=== PATIENT | female | born 1960 | race American Indian/Alaskan Native ===

== ENCOUNTER 2017-02-19 19:14 | Emergency (ER) | payer MEDICARE, OTHER ==
[~2017-02-19] VITALS: Ht 167.6 cm; Wt 81.7 kg
[~2017-02-19 19:14] MED LIST: ACYC400 PO; ALBU90I INH; ALBU90OI INH; ALBUTEROL; AMOX1XR PO; ARIP10 PO; ASPI325EC PO; BACL10 PO; BUSP15; CEPH500 PO; CIPR500; CLON.1 PO; CLON.5; CLON.5 PO; CLON1; CLON2 PO; CLOT10 SS; CRUTCH3 USE; CYCL10; DICYCLOMINE; DULO30 PO; ESCI20 PO; ESCI5 PO; ESTMET; FLEXERIL; FURO100EL PO; FURO40 PO; GABA100; GABA600 PO; HYDACE5325 PO; HYDHCL10 PO; HYDMOR4 PO; HYDPAM50 PO; IBUP800 PO; Ipratr-Albuterol3 ML INH; LEVSOD150 PO; LEVSOD200; LEVSOD25 PO; LIDO5TP; LIDO5TP TOP; LOPE2C PO; METCAR750 PO; METH10; METO10 PO; Monodox100 MG PO; NIAC500ER; NYST100TC TOP; OXYACE10; OXYACE5T PO; OXYACE7.5T; POTA8 PO; POTCHL20ER PO; PRAV20; PREG25 PO; PROG100; PROM12.5S PR; PROM25 PO; PROM50S; PROMETHAZINE; PROMETHAZINE HCL; Percocet 5-3251 EACH PO; Prilosec Otc20 MG PO; QUET25 PO; QUET300; QUET300 PO; RXHYDMOR2 PO; RXOXYACE PO; SIMV40 PO; SIMV5 PO; SPACE CHAMBER1 EACH MC; SULTRIDS PO; SUMA25 PO; TIZANIDINE HCL4 MG PO; TOPI50 PO; TRAM50; TRAM50 PO; TRAZ100; TRAZ100 PO; URICALM; VENL75ER; [UNRECOGNIZED DRUG - OTHER]; [UNRECOGNIZED DRUG - OTHER]
[2017-02-19 19:32] LABS: BASOPHILS ABSOLUTE AUTO 0.04 K/mm3 (0.00-0.23); BASOPHILS PERCENT AUTO 0 % (0-2); EOSINOPHILS ABSOLUTE AUTO 0.24 K/mm3 (0.00-0.68); EOSINOPHILS PERCENT AUTO 2 % (0-6); Hematocrit 35.2 % (33.0-51.0); Hemoglobin 11.4 g/dL (11.5-16.0); IMMATURE GRAN ABSOLUTE AUTO 0.06 K/mm3 (0.00-0.10); IMMATURE GRAN PERCENT AUTO 0 % (0-1); LYMPHOCYTES ABSOLUTE AUTO 4.41 K/mm3 (0.84-5.20); LYMPHOCYTES PERCENT AUTO 30 % (21-46); MONOCYTES ABSOLUTE AUTO 1.03 K/mm3 (0.16-1.47); MONOCYTES PERCENT AUTO 7 % (4-13); Mean Corpuscular HGB 31.3 pg (26.0-34.0); Mean Corpuscular HGB Conc 32.4 g/dL (31.5-36.5); Mean Corpuscular Volume 97 fL (80-100); Mean Platelet Volume 9.8 fL (9.1-12.4); NEUTROPHILS PERCENT AUTO 61 % (41-73); Platelet Count 246 K/mm3 (150-400); RDW Coefficient Variation 14.6 % (11.7-14.2); RDW Standard Deviation 52.1 fL (35.1-46.3); Red Blood Cell Count 3.64 M/mm3 (3.80-5.20); White Blood Cell Count 14.78 K/mm3 (4.00-11.30)
[2017-02-19 19:47] LABS: International Normalized Ratio 1.03; Prothrombin Time Results 10.7 Sec (9.7-11.5)
[2017-02-19 19:50] LABS: Alanine Aminotransfer (ALT/SGP 28 U/L (12-78); Albumin, Blood 3.3 g/dL (3.4-5.0); Albumin/Globulin Ratio 0.9 (0.8-1.8); Alk Phos 92 U/L (50-136); Anion Gap 8 mmol/L (6-16); Aspartate Aminotrans (AST/SGOT 39 U/L (12-37); Bilirubin, Total 0.4 mg/dL (0.1-1.0); Blood Urea Nitrogen 13 mg/dL (8-24); Bun/Creatinine Ratio 14.6 (12.0-20.0); CO2, Blood 27 mmol/L (21-32); Calcium, Blood 8.5 mg/dL (8.5-10.1); Chloride, Blood 108 mmol/L (98-108); Creatinine, Blood 0.89 mg/dL (0.40-1.00); Globulin, Blood 3.5 g/dL (2.2-4.0); Glomerular Filtration Rate >60 (60-); Glucose, Blood 118 mg/dL (70-99); Potassium, Blood 3.2 mmol/L (3.5-5.5); Sodium, Blood 143 mmol/L (136-145); Total Protein, Blood 6.8 g/dL (6.4-8.2)
[2017-02-19 20:54] LABS: Ethanol (Alcohol), Blood, Med <3 mg/dL
== END 2017-02-19 22:08 | disposition short-term general hospital (02) ==
LOC: ER 19:14
PROVIDERS: Emergency Medicine
DX: S12.000A Unspecified displaced fracture of first cervical vertebra, initial encounter for closed fracture (principal); S12.100A Unspecified displaced fracture of second cervical vertebra, initial encounter for closed fracture; S02.82XA Fracture of other specified skull and facial bones, left side, initial encounter for closed fracture; S22.31XA Fracture of one rib, right side, initial encounter for closed fracture; S35.09XA Other injury of abdominal aorta, initial encounter; S05.11XA Contusion of eyeball and orbital tissues, right eye, initial encounter; S00.83XA Contusion of other part of head, initial encounter; V89.2XXA Person injured in unspecified motor-vehicle accident, traffic, initial encounter; Z88.5 Allergy status to narcotic agent; Z88.8 Allergy status to other drugs, medicaments and biological substances; Z79.899 Other long term (current) drug therapy
CPT/HCPCS: 70450; 70486; 71260; 72125; 74177; 80053; 85025; 85610; 85730; 96374; 96375; 96376; 99285; G0480; J2060; J3010; Q9967

== ENCOUNTER 2017-06-01 11:43 | Day surgery (SDC) | payer MEDICARE, OTHER ==
[~2017-06-01] VITALS: Ht 182.9 cm; Wt 9.3 kg
== END 2017-06-01 13:20 | disposition home or self-care (01) ==
LOC: ORSCSDS 11:43
PROVIDERS: Internal Medicine Gastroenterology
PROC: 0DBL8ZX Excision of Transverse Colon, Via Natural or Artificial Opening Endoscopic, Diagnostic (ICD-10-PCS; principal; 2017-06-01 13:00)
DX: Z12.11 Encounter for screening for malignant neoplasm of colon (principal); D12.3 Benign neoplasm of transverse colon; K57.30 Diverticulosis of large intestine without perforation or abscess without bleeding; K64.8 Other hemorrhoids; Z86.010 Personal history of colon polyps; E78.5 Hyperlipidemia, unspecified; Z79.899 Other long term (current) drug therapy
CPT/HCPCS: 88305; J7120

== ENCOUNTER → 2017-07-09 | Outpatient (CLI) | payer MEDICARE, OTHER | LOC: LAB EV 09:50 → LAB SHORT 09:50 | DX: N10 Acute pyelonephritis (principal) | CPT/HCPCS: 87077; 87086; 87186 ==

== ENCOUNTER 2018-06-09 09:01 | Day surgery (SDC) | payer MEDICARE, OTHER ==
[~2018-06-09] VITALS: Ht 182.9 cm; Wt 102.2 kg
[~2018-06-09 09:01] MED LIST changes: +CLONAZEPAM PO; +DULO60 PO; +Imitrex100 MG PO; +LEVSOD125 PO; +Omeprazole20 M1 PO; +TRAZ150T57 PO
== END 2018-06-09 11:08 | disposition home or self-care (01) ==
LOC: ORSCSDS 09:01
PROVIDERS: Internal Medicine Gastroenterology
PROC: 0DBK8ZX Excision of Ascending Colon, Via Natural or Artificial Opening Endoscopic, Diagnostic (ICD-10-PCS; principal; 2018-06-09 10:15)
DX: Z12.11 Encounter for screening for malignant neoplasm of colon (principal); D12.2 Benign neoplasm of ascending colon; Z86.010 Personal history of colon polyps; K57.30 Diverticulosis of large intestine without perforation or abscess without bleeding; J44.9 Chronic obstructive pulmonary disease, unspecified; K64.8 Other hemorrhoids; E78.5 Hyperlipidemia, unspecified; E03.9 Hypothyroidism, unspecified; Z79.899 Other long term (current) drug therapy
CPT/HCPCS: 88305; J2704; J7120

== ENCOUNTER → 2019-12-02 | Outpatient (CLI) | payer OTHER ==
[~2019-12-02] MED LIST changes: +ACYCLOVIR400 MG PO; +AIMOVIG AU70 MG/1 ML SQ; +ARIPIPRAZOLE10 M1 PO; +CEFD300 PO; +Trazodone HCl300 MG PO
== END | disposition home or self-care (01) ==
LOC: LAB SHORT 10:55 → LAB EV 10:55
DX: K11.21 Acute sialoadenitis (principal)
CPT/HCPCS: 87070; 87205

== ENCOUNTER → 2019-12-24 | Outpatient (CLI) | payer OTHER ==
[~2019-12-24] MED LIST changes: +AIMOVIG AU70 MG/1 ML SC; -AIMOVIG AU70 MG/1 ML SQ; +CLONAZEPAM1 MG PO; -Trazodone HCl300 MG PO
== END | disposition home or self-care (01) ==
LOC: LAB EV 14:26 → LAB SHORT 14:26
DX: N39.0 Urinary tract infection, site not specified (principal)
CPT/HCPCS: 87077; 87086; 87186

== ENCOUNTER 2020-01-02 16:40 | Inpatient (IN) | payer OTHER ==
[~2020-01-02] VITALS: Ht 182.9 cm; Wt 102.6 kg
[~2020-01-02 16:40] MED LIST changes: -CLONAZEPAM1 MG PO
[2020-01-02 17:14] LABS: Hematocrit 39.4 % (33.0-51.0); Hemoglobin 12.5 g/dL (11.5-16.0); Mean Corpuscular HGB 31.9 pg (26.0-34.0); Mean Corpuscular HGB Conc 31.7 g/dL (31.5-36.5); Mean Corpuscular Volume 101 fL (80-100); Mean Platelet Volume 10.1 fL (9.1-12.4); Platelet Count 271 K/mm3 (150-400); RDW Coefficient Variation 14.1 % (11.7-14.2); RDW Standard Deviation 51.5 fL (35.1-46.3); Red Blood Cell Count 3.92 M/mm3 (3.80-5.20); White Blood Cell Count 10.51 K/mm3 (4.00-11.30)
[2020-01-02 17:29] LABS: International Normalized Ratio 0.93
[2020-01-02 17:33] LABS: Alanine Aminotransfer (ALT/SGP 20 U/L (12-78); Albumin, Blood 3.6 g/dL (3.4-5.0); Alk Phos 90 U/L (50-136); Anion Gap 8 mmol/L (6-16); Aspartate Aminotrans (AST/SGOT 19 U/L (12-37); Bilirubin, Total 0.4 mg/dL (0.1-1.0); Blood Urea Nitrogen 11 mg/dL (8-24); Bun/Creatinine Ratio 12.8 (12.0-20.0); CO2, Blood 25 mmol/L (21-32); Calcium, Blood 9.2 mg/dL (8.5-10.1); Chloride, Blood 112 mmol/L (98-108); Creatinine, Blood 0.86 mg/dL (0.40-1.00); Globulin, Blood 3.7 g/dL (2.2-4.0); Glomerular Filtration Rate >60 (60-); Glucose, Blood 148 mg/dL (70-99); Potassium, Blood 3.4 mmol/L (3.5-5.5); Sodium, Blood 145 mmol/L (136-145); Total Protein, Blood 7.3 g/dL (6.4-8.2)
[2020-01-02 17:35] LABS: BASOPHILS PERCENT MAN 1 % (0-2); EOSINOPHILS PERCENT MAN 1 % (0-6); LYMPHOCYTES ABSOLUTE MAN 5.14 K/mm3 (0.84-5.20); LYMPHOCYTES PERCENT MAN 49 % (21-46); MONOCYTES ABSOLUTE MAN 0.84 K/mm3 (0.16-1.47); MONOCYTES PERCENT MAN 8 % (4-13); SEG NEUTROPHILS PERCENT MAN 41 % (41-73); TOTAL CELLS COUNTED 100
[2020-01-02 19:04] LABS: Source, Urine Catheter
[2020-01-02 19:07] LABS: Appearance, Urine Clear (Clear); Bilirubin, Urine Neg (Neg); Blood, Urine 2+ (Neg); Color, Urine Yellow (P-Yellow); Glucose Qualitative, Urine Neg (Neg); Ketones, Urine Neg (Neg); Leukocyte Esterase, Urine Neg (Neg); Nitrite, Urine Neg (Neg); Protein, Urine Neg (Neg); Specific Gravity, Urine 1.015 (1.003-1.022); Urobilinogen, Urine NORM (Normal)
[2020-01-02 19:18] LABS: Bacteria Few /hpf; Mucus Light (0-Heavy); Squamous Epithelial Cells Not Seen /hpf (Few); White Blood Cells, Urine 0-2 /hpf (0-5)
[2020-01-02] MEDS ORDERED: CLONAZEPAM1 MG PO (20:02)
--- NOTE | 2020-01-02 22:00 | NUR ---
PT ADMITTED FROM ER AT APPROX 2120 FOR LEFT FEMUR FX. PT REPORTS SLIPPING OUTSIDE IN DRIVEWAY. PT REPORTS SHE LIVES AT HOME ALONE. INDEPENDENT AT BASELINE. DAUGHTER AND S/O ACTIVE IN CARE. A&O X4. VSS. FORTUNE AWARE OF ORTHO CONSULT. 50MCG OF FENTANYL FOR PAIN PER EMAR. NPO AT MIDNIGHT FOR SURGERY TOMORROW. WILL INFUSE NS AFTER MIDNIGHT PER ORDERS.
--- NOTE | 2020-01-03 14:42 | NUR ---
PT TO DAY SURGERY AT THIS TIME.
--- NOTE | 2020-01-03 14:58 | NUR ---
History, Chart, Medications and Allergies reviewed before start of procedure. Patient confirms NPO status and agrees with scheduled surgery. Pre-Op teaching done. Pt verbalizes understanding.
--- NOTE | 2020-01-03 17:47 | NUR ---
SHIFT SUMMARY PT WAS RECEIVING 50 MCG IV FENTANYL FOR PAIN MANAGEMENT Q2H PRIOR TO SURGERY. ATTEMPTED ICE AND REPOSITIONING TOLERATED. CERVANTES INTACT AND DRAINING YELLOW URINE. IVF PER ORDERS. DAUGHTER WAS AT BEDSIDE THIS AFTERNOON FOR SUPPORT. DAUGHTER CALLED AND WAS UPDATED ON PT STILL BEING IN THE OR AT THIS TIME.
--- NOTE | 2020-01-03 18:32 | NUR ---
POST OP S/P FEMUR RODDING. PT DROWSY BUT AWAKENS EASILY AND FOLLOWS COMMANDS. POST OP VSS. ENCOURAGING DEEP BREATHING. LEFT LEG DRESSING APPEARS CDI WITH KNEE IMMOBILIZER IN PLACE. PT ABLE TO WIGGLE TOES AND CAP REFILL <3 SECONDS. PT DENIES PAIN TO LEFT LEG, BUT REPORTS LOWER BACK PAIN. REPOSITIONING FOR COMFORT PRN. OFFERED ICE WATER. IVF INFUSNIG PER ORDERS. CERVANTES CATH PATENT AND DRAINING CLEAR YELLOW. CALL LIGHT WITHIN REACH.
[2020-01-04 04:48] LABS: BASOPHILS ABSOLUTE AUTO 0.02 K/mm3 (0.00-0.23); BASOPHILS PERCENT AUTO 0 % (0-2); EOSINOPHILS PERCENT AUTO 0 % (0-6); Hematocrit 34.9 % (33.0-51.0); Hemoglobin 10.9 g/dL (11.5-16.0); IMMATURE GRAN ABSOLUTE AUTO 0.04 K/mm3 (0.00-0.10); IMMATURE GRAN PERCENT AUTO 0 % (0-1); LYMPHOCYTES ABSOLUTE AUTO 0.98 K/mm3 (0.84-5.20); LYMPHOCYTES PERCENT AUTO 9 % (21-46); MONOCYTES ABSOLUTE AUTO 0.99 K/mm3 (0.16-1.47); MONOCYTES PERCENT AUTO 9 % (4-13); Mean Corpuscular HGB 31.9 pg (26.0-34.0); Mean Corpuscular HGB Conc 31.2 g/dL (31.5-36.5); Mean Corpuscular Volume 102 fL (80-100); Mean Platelet Volume 10.5 fL (9.1-12.4); NEUTROPHILS ABSOLUTE AUTO 9.34 K/mm3 (1.96-9.15); NEUTROPHILS PERCENT AUTO 82 % (41-73); Platelet Count 231 K/mm3 (150-400); RDW Coefficient Variation 14.1 % (11.7-14.2); RDW Standard Deviation 53.5 fL (35.1-46.3); Red Blood Cell Count 3.42 M/mm3 (3.80-5.20); White Blood Cell Count 11.37 K/mm3 (4.00-11.30)
[2020-01-04 05:11] LABS: Anion Gap 6 mmol/L (6-16); Blood Urea Nitrogen 7 mg/dL (8-24); Bun/Creatinine Ratio 9.5 (12.0-20.0); CO2, Blood 26 mmol/L (21-32); Calcium, Blood 8.7 mg/dL (8.5-10.1); Chloride, Blood 109 mmol/L (98-108); Creatinine, Blood 0.74 mg/dL (0.40-1.00); Glomerular Filtration Rate >60 (60-); Glucose, Blood 142 mg/dL (70-99); Potassium, Blood 4.3 mmol/L (3.5-5.5); Sodium, Blood 141 mmol/L (136-145)
--- NOTE | 2020-01-04 06:52 | NUR ---
SHIFT SUMMARY POD 1 S/P LEFT FEMUR RODDING. VICENTA WRAP AND IMMOBILIZER TO LLE IN PLACE, DRESSING APPEARS CDI. SCD AND TEDS IN PLACE, ICE APPLIED JENISE. PAIN MANAGED PER EMAR AND REPOSITIONING. DENIES N/V. JENISE PO INTAKE. IVF/ABX INFUSING PER ORDERS. APPEARS TO HAVE SLEPT WELL T/O SHIFT. PLAN TO WORK WITH THERAPY TODAY. WILL CONT TO MONITOR AND GIVE REPORT TO ONCOMING RN.
--- NOTE | 2020-01-04 15:44 | NUR ---
FAXED ORDERS, FACESHEET, CHART NOTES TO [facility]
--- NOTE | 2020-01-04 17:45 | NUR ---
DR FORTUNE IN AND [facility] IN \ DR FORTUNE IN TO CHANGE DRESSING TO LLE [facility] IN TO FIT PT FOR ROM BRACE.
--- NOTE | 2020-01-04 17:56 | NUR ---
SUMMARY NO ACUTE CHANGES THIS SHIFT. PT WORKED W/THERAPY. CERVANTES CATH DC'D THIS AM AND PT HAS BEEN VOIDING W/O DIFFICULTY. IV INFILTRATED, MULTIPLE TRIES WERE UNSUCCESSFUL TO ESTABLISH NEW SITE. NOTIFIED DR DOMINGUEZ AND OBTAINED ORDERS TO INCREASE TRAMADOL DOSAGE FOR PAIN AND CHANGE ZOFRAN TO PO. PT'S PAIN WAS NOT WELL CONTROLLED W/ORDERS FOR TRAMADOL, NAPROXEN AND TYLENOL. SPOKE TO DR FORTUNE AND OBTAINED ORDERS FOR OXYCODONE, WHICH PT REPORTS HAS TAKEN IN PAST. DR FORTUNE IN THIS AFTERNOON TO CHANGE DRESSINGS AND [facility] IN TO PLACE ROM BRACE AT 0-90. PT HAS BEEN AMBULATING TO RESTROOM W/NWB TO LLE STATUS USING GAIT BELT AND FWW. SAT UP IN CHAIR TWICE DURING SHIFT. TOLERATING REGULAR DIET. ICE INTERMITTENTLY TO L KNEE. CALL LIGHT IN REACH.
--- NOTE | 2020-01-05 07:22 | NUR ---
SUMMARY TOLERATES BRP NWB LLE. HAD DULCOLAX PILL TONIGHT, BUT NO BM YET.
--- NOTE | 2020-01-05 16:11 | NUR ---
DISCHARGE: REPORT GIVEN TO MARTINA DELGADO AT [facility] AT THIS TIME. PT GIVEN EXTRA AQUACEL DRESSINGS UPON DISCHARGE. PT LEFT UNIT VIA WHEELCHIAR AT ABOUT 1600 WITH LIZA LIU, PT HAD DISCHARGE FOLDER WITH HER.
== END 2020-01-05 19:07 | DRG 481 ==
LOC: ER 16:40 → SURS 19:51
PROVIDERS: Emergency Medicine; Internal Medicine; Orthopaedic Surgery; ADMIT Family Medicine
PROC: 0QS906Z Reposition Left Femoral Shaft with Intramedullary Internal Fixation Device, Open Approach (ICD-10-PCS; principal; 2020-01-03 14:30)
DX: S72.302A Unspecified fracture of shaft of left femur, initial encounter for closed fracture (principal); N39.0 Urinary tract infection, site not specified; Q60.0 Renal agenesis, unilateral; M97.12XA Periprosthetic fracture around internal prosthetic left knee joint, initial encounter; E03.9 Hypothyroidism, unspecified; E78.5 Hyperlipidemia, unspecified; E87.6 Hypokalemia; F31.9 Bipolar disorder, unspecified; J45.909 Unspecified asthma, uncomplicated; Z98.84 Bariatric surgery status; Z96.653 Presence of artificial knee joint, bilateral; R53.82 Chronic fatigue, unspecified; W19.XXXA Unspecified fall, initial encounter
CPT/HCPCS: 36415; 70450; 71045; 71260; 72125; 72170; 73552; 73560-LT; 73590; 74177; 80048; 80053; 81001; 83690; 83735; 85025; 85610; 86850; 86900; 86901; 94760; 96374-59; 96375-59; 96376-59; 97110; 97116; 97162; 97165; 97530; 99285-25; A9270; C1713; C1769; J0690; J1100; J1170; J1650; J1885; J2250; J2270; J2405; J2704; J3010; J3370; J7030; J7120; Q9967; U0004

== ENCOUNTER → 2020-02-06 | Outpatient (CLI) | payer OTHER ==
[~2020-02-06] MED LIST changes: +CLONAZEPAM1 MG PO
== END ==
LOC: LAB SHORT 13:51 → LAB 13:51
DX: N39.0 Urinary tract infection, site not specified (principal)
CPT/HCPCS: 87077; 87086; 87186

== ENCOUNTER → 2020-05-21 | Outpatient (CLI) | payer OTHER ==
[2020-05-21 14:59] LABS: Source, Urine Clean Catch
[2020-05-21 15:11] LABS: Bacteria Not Seen /hpf; Red Blood Cells, Urine Rare /hpf (0-2); Squamous Epithelial Cells Rare /hpf (Few); White Blood Cells, Urine Not Seen /hpf (0-5)
== END | disposition home or self-care (01) ==
LOC: LAB SHORT 14:56 → LAB EV 14:56
PROVIDERS: Family Medicine
DX: R31.9 Hematuria, unspecified (principal)
CPT/HCPCS: 81015

== ENCOUNTER → 2020-11-13 | Outpatient (CLI) | payer OTHER | END | disposition home or self-care (01) | LOC: LAB SHORT 10:45 → LAB 10:45 | DX: N39.0 Urinary tract infection, site not specified (principal) | CPT/HCPCS: 87086 ==

== ENCOUNTER → 2020-11-29 | Outpatient (CLI) | payer OTHER ==
[2020-11-29 16:34] LABS: BASOPHILS ABSOLUTE AUTO 0.05 K/mm3 (0.00-0.23); BASOPHILS PERCENT AUTO 0 % (0-2); EOSINOPHILS ABSOLUTE AUTO 0.01 K/mm3 (0.00-0.68); EOSINOPHILS PERCENT AUTO 0 % (0-6); Hematocrit 41.9 % (33.0-51.0); IMMATURE GRAN ABSOLUTE AUTO 0.03 K/mm3 (0.00-0.10); IMMATURE GRAN PERCENT AUTO 0 % (0-1); LYMPHOCYTES ABSOLUTE AUTO 1.31 K/mm3 (0.84-5.20); LYMPHOCYTES PERCENT AUTO 11 % (21-46); MONOCYTES ABSOLUTE AUTO 0.74 K/mm3 (0.16-1.47); MONOCYTES PERCENT AUTO 6 % (4-13); Mean Corpuscular HGB 32.4 pg (26.0-34.0); Mean Corpuscular HGB Conc 33.4 g/dL (31.5-36.5); Mean Corpuscular Volume 97 fL (80-100); Mean Platelet Volume 9.6 fL (9.1-12.4); NEUTROPHILS ABSOLUTE AUTO 9.73 K/mm3 (1.96-9.15); NEUTROPHILS PERCENT AUTO 82 % (41-73); Platelet Count 300 K/mm3 (150-400); RDW Coefficient Variation 14.8 % (11.7-14.2); RDW Standard Deviation 53.1 fL (35.1-46.3); Red Blood Cell Count 4.32 M/mm3 (3.80-5.20); White Blood Cell Count 11.87 K/mm3 (4.00-11.30)
[2020-11-29 16:39] LABS: Bun/Creatinine Ratio 9.3 (12.0-20.0); Calcium, Blood 9.2 mg/dL (8.5-10.1); Creatinine, Blood 1.08 mg/dL (0.40-1.00); Potassium, Blood 3.8 mmol/L (3.5-5.5)
== END | disposition home or self-care (01) ==
LOC: LAB SHORT 16:30
PROVIDERS: Chiropractor
DX: E86.0 Dehydration (principal)
CPT/HCPCS: 80048; 85025

== ENCOUNTER 2021-01-28 15:12 | Emergency (ER) | payer OTHER ==
[~2021-01-28] VITALS: Ht 182.9 cm; Wt 106.6 kg
[2021-01-28 15:55] LABS: BASOPHILS ABSOLUTE AUTO 0.07 K/mm3 (0.00-0.23); BASOPHILS PERCENT AUTO 1 % (0-2); EOSINOPHILS ABSOLUTE AUTO 0.17 K/mm3 (0.00-0.68); EOSINOPHILS PERCENT AUTO 2 % (0-6); Hemoglobin 13.4 g/dL (11.5-16.0); IMMATURE GRAN ABSOLUTE AUTO 0.01 K/mm3 (0.00-0.10); IMMATURE GRAN PERCENT AUTO 0 % (0-1); LYMPHOCYTES ABSOLUTE AUTO 2.58 K/mm3 (0.84-5.20); LYMPHOCYTES PERCENT AUTO 36 % (21-46); MONOCYTES ABSOLUTE AUTO 0.72 K/mm3 (0.16-1.47); MONOCYTES PERCENT AUTO 10 % (4-13); Mean Corpuscular HGB 32.4 pg (26.0-34.0); Mean Corpuscular HGB Conc 32.7 g/dL (31.5-36.5); Mean Corpuscular Volume 99 fL (80-100); Mean Platelet Volume 9.9 fL (9.1-12.4); NEUTROPHILS ABSOLUTE AUTO 3.55 K/mm3 (1.96-9.15); NEUTROPHILS PERCENT AUTO 50 % (41-73); Platelet Count 301 K/mm3 (150-400); RDW Coefficient Variation 13.9 % (11.7-14.2); RDW Standard Deviation 51.5 fL (35.1-46.3); Red Blood Cell Count 4.14 M/mm3 (3.80-5.20)
[2021-01-28 16:22] LABS: Alanine Aminotransfer (ALT/SGP 16 U/L (12-78); Albumin, Blood 3.6 g/dL (3.4-5.0); Albumin/Globulin Ratio 0.9 (0.8-1.8); Alk Phos 119 U/L (50-136); Anion Gap 5 mmol/L (6-16); Aspartate Aminotrans (AST/SGOT 14 U/L (12-37); Bilirubin, Total 0.7 mg/dL (0.1-1.0); Blood Urea Nitrogen 11 mg/dL (8-24); Bun/Creatinine Ratio 12.4 (12.0-20.0); CO2, Blood 28 mmol/L (21-32); Chloride, Blood 105 mmol/L (98-108); Creatinine, Blood 0.89 mg/dL (0.40-1.00); Globulin, Blood 4.1 g/dL (2.2-4.0); Glomerular Filtration Rate >60 (60-); Glucose, Blood 91 mg/dL (70-99); Potassium, Blood 4.1 mmol/L (3.5-5.5); Sodium, Blood 138 mmol/L (136-145); Total Protein, Blood 7.7 g/dL (6.4-8.2)
== END 2021-01-28 18:25 | disposition home or self-care (01) ==
LOC: ER 15:12
PROVIDERS: Physician Assistant
DX: G43.909 Migraine, unspecified, not intractable, without status migrainosus (principal); E03.9 Hypothyroidism, unspecified; E78.5 Hyperlipidemia, unspecified; J45.909 Unspecified asthma, uncomplicated; Z79.899 Other long term (current) drug therapy; Z88.5 Allergy status to narcotic agent; Z88.8 Allergy status to other drugs, medicaments and biological substances
CPT/HCPCS: 36415; 70450; 80053; 85025; 99284-25

== ENCOUNTER → 2022-01-15 | Outpatient (CLI) | payer OTHER | LOC: LAB 16:22 → LAB SHORT 16:22 | DX: R39.9 Unspecified symptoms and signs involving the genitourinary system (principal) | CPT/HCPCS: 87086 ==